=== PATIENT | female | born 1970 | race American Indian/Alaskan Native ===

== ENCOUNTER 2019-04-10 18:00 | Emergency (ER) | payer SELFPAY ==
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
[2019-04-10 20:30] LABS: Basophils % (Auto) 0.5 % (0.0-1.8); Eosinophils # (Auto) 0.1 K/mm3 (0.0-0.4); Eosinophils % (Auto) 2.7 % (0.0-4.3); Hematocrit 38.9 % (30.3-42.9); Hemoglobin 13.1 gm/dl (10.1-14.3); Lymphocytes # (Auto) 1.8 K/mm3 (1.2-5.4); Mean Corpuscular HGB Conc 34 % (30-34); Mean Corpuscular Volume 93 fl (79-97); Monocytes # (Auto) 0.3 K/mm3 (0.0-0.8); Monocytes % (Auto) 8.2 % (0.0-7.3); Platelet Count 341 K/mm3 (140-440); Red Blood Count 4.18 M/mm3 (3.65-5.03); Red Cell Distribution Width 13.6 % (13.2-15.2)
[2019-04-10 20:43] LABS: BUN/Creatinine Ratio 10; Blood Urea Nitrogen 7 mg/dL (7-17); Calcium 9.1 mg/dL (8.4-10.2); Hemolysis Index 6
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
[2019-04-10] MEDS ORDERED: HYDROcodone/ACETAMINOPHEN 5-325 MG TAB PO ONE (22:50)
[2019-04-10 23:19] VITALS: BP 163/105
[2019-04-10] MEDS ORDERED: traMADol 50 MG TAB PO ONE (23:22)
[2019-04-10] MEDS ORDERED: traMADol 50 MG TAB ONE (23:24)
--- NOTE | 2019-04-11 00:38 | Emergency Department Report ---
ED Headache HPI - General Chief Complaint: Headache Stated Complaint: DIZZY/BLURRED VISION/PAIN Time Seen by Provider: 04/10/19 19:40 - History of Present Illness Allergies/Adverse Reactions: Allergies hydrocodone Allergy (Verified 04/10/19 23:20) Itching latex Allergy (Verified 02/06/13 05:13) Shortness of Breath Home Medications: Ambulatory Orders Atenolol [Tenormin] 100 mg PO DAILY 02/06/13 Melatonin/Pyridoxine [Melatonin 5 mg Tablet] 5 mg PO QHS 02/06/13 hydroCHLOROthiazide [Hctz] 25 mg PO QDAY 02/06/13 Acetaminophen [Acetaminophen TAB] 1,000 mg PO Q6HR PRN #30 tablet 04/11/19 Metoclopramide [Reglan] 10 mg PO TID PRN #30 tab 04/11/19 diphenhydrAMINE [Benadryl CAP] 25 mg PO Q6HR PRN #30 capsule 04/11/19 ED Review of Systems ROS: Stated complaint: DIZZY/BLURRED VISION/PAIN Other details as noted in HPI ED Past Medical Hx - Past Medical History Previous Medical History?: Yes Hx Hypertension: Yes Hx Arthritis: Yes Additional medical history: brain aneurysm - Surgical History Past Surgical History?: Yes Additional Surgical History: tubal, hysterectomy, hand surgery - Social History Smoking Status: Never Smoker Substance Use Type: None - Medications Home Medications: Home Medications Medication Instructions Recorded Confirmed Last Taken Type Atenolol [Tenormin] 100 mg PO DAILY 02/06/13 02/06/13 02/05/13 21:30 History Melatonin/Pyridoxine [Melatonin 5 5 mg PO QHS 02/06/13 02/06/13 02/05/13 09:00 History mg Tablet] hydroCHLOROthiazide [Hctz] 25 mg PO QDAY 02/06/13 02/06/13 02/05/13 21:30 History Acetaminophen [Acetaminophen TAB] 1,000 mg PO Q6HR PRN #30 tablet 04/11/19 Unknown Rx Metoclopramide [Reglan] 10 mg PO TID PRN #30 tab 04/11/19 Unknown Rx diphenhydrAMINE [Benadryl CAP] 25 mg PO Q6HR PRN #30 capsule 04/11/19 Unknown Rx ED Physical Exam - General Limitations: No Limitations ED Course Vital Signs 04/10/19 04/10/19 04/10/19 19:39 19:45 23:17 Temperature 98.3 F 98.5 F Pulse Rate 87 79 Respiratory 18 18 17 Rate Blood Pressure 172/111 172/111 Blood Pressure [Right] O2 Sat by Pulse 99 98 Oximetry 04/10/19 23:18 Temperature 98.1 F Pulse Rate 79 Respiratory 16 Rate Blood Pressure Blood Pressure 163/105 [Right] O2 Sat by Pulse 99 Oximetry ED Medical Decision Making - Lab Data Result diagrams: 04/10/19 20:06 04/10/19 20:06 Critical care attestation.: If time is entered above; I have spent that time in minutes in the direct care of this critically ill patient, excluding procedure time. ED Disposition Clinical Impression: Headache Qualifiers: Headache type: unspecified Headache chronicity pattern: acute headache Intractability: not intractable Qualified Code(s): R51 - Headache Disposition: DC-01 TO HOME OR SELFCARE Is pt being admited?: No Does the pt Need Aspirin: No Condition: Stable Instructions: Acute Headache (ED) Prescriptions: Acetaminophen [Acetaminophen TAB] 1,000 mg PO Q6HR PRN #30 tablet PRN Reason: pain diphenhydrAMINE [Benadryl CAP] 25 mg PO Q6HR PRN #30 capsule PRN Reason: Headache Metoclopramide [Reglan] 10 mg PO TID PRN #30 tab PRN Reason: Headache Referrals: ARABELLA CHOWDHURY [Other] - 3-5 Days LUIS ENRIQUE ESPINOSA MD [Referring] - 3-5 Days Forms: Work/School Release Form(ED)
== END 2019-04-11 00:45 | disposition home or self-care (01) ==
LOC: ED 18:00
DX: R51 Headache (principal); I10 Essential (primary) hypertension; M19.90 Unspecified osteoarthritis, unspecified site; Z98.51 Tubal ligation status; Z90.710 Acquired absence of both cervix and uterus; Z98.890 Other specified postprocedural states; Z79.899 Other long term (current) drug therapy; Z88.5 Allergy status to narcotic agent; Z91.040 Latex allergy status
CPT/HCPCS: 36415; 70450; 80048; 84703; 85025